=== PATIENT | female | born 1970 | race Two or more races ===

== ENCOUNTER 2022-07-07 15:53 | Emergency (ER) | payer SELFPAY ==
[~2022-07-07] VITALS: Ht 152.4 cm; Wt 60.0 kg
[2022-07-07] MEDS ORDERED: DICL50TA2 PO (18:38)
[2022-07-07] MEDS ORDERED: CYCL-837 PO (18:38)
[2022-07-07] MEDS ORDERED: BACI1OIN45 EX (18:38)
[2022-07-07 18:42] VITALS: BP 100/66
== END 2022-07-07 18:52 | disposition home or self-care (01) ==
LOC: ER 15:53
DX: S00.33XA Contusion of nose, initial encounter (principal); M62.838 Other muscle spasm; W19.XXXA Unspecified fall, initial encounter; Y93.89 Activity, other specified; Y92.89 Other specified places as the place of occurrence of the external cause; Y99.8 Other external cause status
CPT/HCPCS: 70486; 72125

== ENCOUNTER 2023-04-08 01:51 | Inpatient (IN) | payer MEDICAID, OTHER ==
[~2023-04-08] VITALS: Ht 152.4 cm; Wt 77.7 kg
[~2023-04-08 01:51] MED LIST: BACI1OIN45 EX; CYCL-837 PO; DICL50TA2 PO
[2023-04-08] MEDS ORDERED: SODIUM CHLORIDE 0.9% 1,000 ML IV ONE ×2 (02:30→03:45)
[2023-04-08] MEDS ORDERED: ONDANSETRON HCL 4 MG/2 ML VIAL IV ONE (02:30)
[2023-04-08] MEDS ORDERED: FAMOTIDINE (10MG/ML) 2ML VL IV ONE (02:30)
[2023-04-08 02:35] LABS: Basophils # (auto) 0 10 ^3/uL (0-0.2); Basophils % (auto) 0.2 % (0.0-2.0); Eosinophils # (auto) 0.2 10 ^3/uL (0-0.8); Eosinophils % (auto) 1.5 % (0.0-7.0); Hematocrit 38.8 % (36.0-46.0); Hemoglobin 12.8 g/dL (12.2-16.2); Lymphocytes % (auto) 31.8 % (10.0-50.0); Mean Corpuscular Volume 87.6 fL (80.0-100.0); Monocytes # (auto) 0.9 10 ^3/uL (0-1.3); Monocytes % (auto) 7.4 % (0.0-12.0); Neutrophils # (auto) 7.5 10 ^3/uL (1.6-8.6); Neutrophils % (auto) 59.1 % (37.0-80.0); Nucleated Red Blood Cells % 0.1 %; Red Blood Cells 4.43 10^6/uL (4.0-5.20); Red Cell Distribution Width 13.5 % (11.8-14.3); White Blood Cell 12.7 10^3/uL (4.4-10.8)
[2023-04-08 02:43] VITALS: PULSE 70; RESP 14; O2SAT 93
[2023-04-08 02:50] LABS: Albumin 3.5 g/dL (3.4-5.0); BUN/Creatinine Ratio 17.8 (10.0-20.0); Calcium 9.2 mg/dL (8.5-10.1); Potassium 3.5 mmol/L (3.5-5.1)
[2023-04-08 02:53] LABS: Total Protein 7.2 g/dL (6.4-8.2)
[2023-04-08] MEDS ORDERED: MORPHINE SULFATE INJ 2 MG/ml SYRG IV PRN (06:45)
[2023-04-08] MEDS ORDERED: DOCUSATE SOD 100 MG CAP PO PRN (06:45)
[2023-04-08] MEDS ORDERED: ACETAMINOPHEN 325 MG TAB PO PRN (06:45)
[2023-04-08] MEDS ORDERED: HYDROcodone-ACET 5/325MG TAB PO PRN (06:45)
[2023-04-08] MEDS ORDERED: ONDANSETRON HCL 4 MG/2 ML VIAL IV PRN (06:45)
[2023-04-08] MEDS ORDERED: NITROGLYCERIN 0.4 MG SL TAB SL PRN (06:45)
[2023-04-08] MEDS: SODIUM CHLORIDE 0.9% 1,000 ML IV SCH ×2 (07:20→23:25)
[2023-04-08 07:23] LABS: Basophils # (auto) 0 10 ^3/uL (0-0.2); Basophils % (auto) 0.2 % (0.0-2.0); Eosinophils # (auto) 0 10 ^3/uL (0-0.8); Eosinophils % (auto) 0.1 % (0.0-7.0); Hematocrit 37.1 % (36.0-46.0); Hemoglobin 12.1 g/dL (12.2-16.2); Lymphocytes # (auto) 1.9 10 ^3/uL (0.4-5.4); Lymphocytes % (auto) 15.8 % (10.0-50.0); Mean Corpuscular Hemoglobin 28.6 pg (28.0-32.0); Mean Corpuscular Hgb Conc. 32.7 g/dL (32.0-36.0); Mean Corpuscular Volume 87.4 fL (80.0-100.0); Monocytes # (auto) 0.5 10 ^3/uL (0-1.3); Monocytes % (auto) 4.5 % (0.0-12.0); Neutrophils # (auto) 9.4 10 ^3/uL (1.6-8.6); Neutrophils % (auto) 79.4 % (37.0-80.0); Nucleated Red Blood Cells % 0.1 %; Red Blood Cells 4.24 10^6/uL (4.0-5.20); Red Cell Distribution Width 13.7 % (11.8-14.3); White Blood Cell 11.9 10^3/uL (4.4-10.8)
[2023-04-08 07:46] LABS: Albumin 3.1 g/dL (3.4-5.0); Calcium 8.7 mg/dL (8.5-10.1); Potassium 3.9 mmol/L (3.5-5.1)
[2023-04-08 07:48] VITALS: PULSE 64; RESP 16; O2SAT 93
[2023-04-08 07:50] LABS: Bilirubin, Total 0.9 mg/dL (0.2-1.0); Total Protein 6.6 g/dL (6.4-8.2)
[2023-04-08] MEDS: cefTRIAXone 1GM/50ML D5W 50 ML IV SCH (09:11)
[2023-04-08 09:47] LABS: Urine Bacteria NONE SEEN /hpf (None Seen); Urine Blood Negative /uL (Negative); Urine Hyaline Cast MANY /lpf (0 - 2); Urine Mucus FEW (None Seen); Urine Specific Gravity 1.012 (1.001-1.035); Urine WBC 14 /hpf (0 - 5)
[2023-04-08 11:45] LABS: Amphetamine Screen, Urine NEGATIVE (NEGATIVE); Barbiturate Scree,Urine NEGATIVE (NEGATIVE); Benzodiazephine Screen, Urine NEGATIVE (NEGATIVE); Cannabinoid Screen, Urine NEGATIVE (NEGATIVE)
[2023-04-08 11:48] LABS: Alcohol, Urine < 3.0 mg/dL (0-10); Cocaine Screen, Urine NEGATIVE (NEGATIVE); Opiate Scree,Urine NEGATIVE (NEGATIVE); Phencyclidine Screen, Urine NEGATIVE (NEGATIVE)
[2023-04-08 20:14] VITALS: PULSE 75; RESP 14; O2SAT 96
[2023-04-08 20:40] VITALS: BP 106/56; PULSE 67; RESP 18; TEMP 97.6; O2SAT 67; O2SAT 98
[2023-04-08 21:20] VITALS: BP 106/56; PULSE 67; RESP 18; TEMP 97.6; O2SAT 98
[2023-04-08 21:30] VITALS: BP_SYST 119; BP_SYST 127; BP_DIAS 52; BP_DIAS 54; PULSE 69; PULSE 72; RESP 18; O2SAT 96; O2SAT 97
[2023-04-09] VITALS (7 sets, daily range): BP systolic 98–157; BP diastolic 45–69; PULSE 64–94; RESP 15–21; TEMP 97.3–98.2; O2SAT 95–100
[2023-04-09] MEDS ORDERED: CHOL50007 PO (02:19)
[2023-04-09] MEDS ORDERED: GABA-1250 PO (02:19)
[2023-04-09] MEDS ORDERED: ATOR20TA50 PO (02:19)
[2023-04-09] MEDS ORDERED: MECL-126 PO (02:19)
[2023-04-09] MEDS ORDERED: PRAZ2CAP2 PO (02:19)
[2023-04-09] MEDS ORDERED: AMIT25TA20 PO (02:19)
[2023-04-09] MEDS ORDERED: BUSP30TA21 PO (02:19)
[2023-04-09] MEDS ORDERED: ETOD400T3 PO (02:19)
[2023-04-09] MEDS ORDERED: ASPI-325 PO (02:19)
[2023-04-09] MEDS ORDERED: ESCI1TAB37 PO (02:19)
[2023-04-09] MEDS ORDERED: CETI10CH PO (02:19)
[2023-04-09 06:36] LABS: Basophils # (auto) 0 10 ^3/uL (0-0.2); Basophils % (auto) 0.4 % (0.0-2.0); Eosinophils # (auto) 0.3 10 ^3/uL (0-0.8); Eosinophils % (auto) 4.2 % (0.0-7.0); Hematocrit 34.4 % (36.0-46.0); Hemoglobin 11.4 g/dL (12.2-16.2); Lymphocytes # (auto) 3.6 10 ^3/uL (0.4-5.4); Lymphocytes % (auto) 44.9 % (10.0-50.0); Monocytes # (auto) 0.7 10 ^3/uL (0-1.3); Monocytes % (auto) 9.2 % (0.0-12.0); Neutrophils # (auto) 3.3 10 ^3/uL (1.6-8.6); Neutrophils % (auto) 41.3 % (37.0-80.0); Nucleated Red Blood Cells % 0.1 %; Red Blood Cells 3.91 10^6/uL (4.0-5.20)
[2023-04-09 06:54] LABS: Albumin 2.6 g/dL (3.4-5.0); Calcium 8.5 mg/dL (8.5-10.1); Potassium 3.9 mmol/L (3.5-5.1)
[2023-04-09 07:02] LABS: BUN/Creatinine Ratio 22.1 (10.0-20.0); Bilirubin, Total 0.6 mg/dL (0.2-1.0); Total Protein 5.6 g/dL (6.4-8.2)
[2023-04-09] MEDS: cefTRIAXone 1GM/50ML D5W 50 ML IV SCH (09:14)
[2023-04-09] MEDS ORDERED: FAMOTIDINE (10MG/ML) 2ML VL IV SCH (10:00)
[2023-04-09] MEDS ORDERED: AMIT50TA10 PO (14:09)
== END 2023-04-09 17:23 | disposition home or self-care (01) | DRG 204 ==
LOC: ER 01:51 → TELE 06:48 → TELE-WESTW 21:11
PROVIDERS: ADMIT Internal Medicine Geriatric Medicine; ATTEND Internal Medicine Geriatric Medicine
DX: I95.1 Orthostatic hypotension (principal); E44.1 Mild protein-calorie malnutrition; I95.9 Hypotension, unspecified; D72.829 Elevated white blood cell count, unspecified; E78.5 Hyperlipidemia, unspecified; R73.9 Hyperglycemia, unspecified; E66.9 Obesity, unspecified; F32.A Depression, unspecified; F41.9 Anxiety disorder, unspecified; G89.29 Other chronic pain; J45.909 Unspecified asthma, uncomplicated; Z82.49 Family history of ischemic heart disease and other diseases of the circulatory system; Z88.8 Allergy status to other drugs, medicaments and biological substances; Z90.710 Acquired absence of both cervix and uterus; Z68.33 Body mass index [BMI] 33.0-33.9, adult
CPT/HCPCS: 36415; 70450; 70551; 71045; 80053; 80061; 80307; 81001; 82962; 83036; 84443; 84484; 85025; 93005; 93306; 93886; 96361; 96374; 96375; G0378; J0696; J2405; J3490